=== PATIENT | female | born 1970 | race Caucasian/White ===

== ENCOUNTER → 2016-10-16 | Day surgery (SDC) | payer OTHER ==
--- NOTE | 2016-10-15 17:07 | History & Physical Pre-Op ---
General Information and HPI History of Present Illness: Emily is a 45-year-old female with a long-standing worsening complaint of painful and enlarging lesions involving both her left and right feet. The patient has undergone an extended course conservative care, including shoe gear and activity modification, rest and immobilization. None of this is yielded her any significant relief. The patient presents today for preoperative surgical consultation. Allergies/Medications Allergies: Coded Allergies: No Known Allergies (10/11/16) Home Med list Fluoxetine HCl (Prozac) 10 MG CAPSULE 3 CAP PO DAILY MENTAL HEALTH (Reported) Sertraline HCl (Zoloft) (Unknown Strength) TABLET (Unknown Dose) PO DAILY MENTAL HEALTH (Reported) Valacyclovir Hydrochloride (Valtrex) (Unknown Strength) TABLET (Unknown Dose) PO DAILY UNKNOWN (Reported) Past History Surgical History Pertinent Surgical History: non-contributory Review of Systems Review of Systems: Unremarkable except for that noted in history of present illness Exam & Diagnostic Data Physical Exam: Lungs clear bilaterally. Heart sounds rate and rhythm regular. Lower extremity physical exam demonstrates intact pedal pulses bilaterally. Pulses dorsalis pedis and posterior tibial arteries are palpable bilaterally. Patient without any sensory motor deficits. Deep tendon reflexes grossly intact. Patient noted to have soft tissue lesion involving the dorsal aspect of the third digit bilaterally. The lesions are firm and freely mobile within the soft tissues. They are nonpulsatile. Assessment/Plan Assessment/Plan: Painful and enlarging soft tissue masses bilateral feet. A lengthy discussion reviewing both surgical and conservative options was held the patient at bedside and the patient elects to go forward with surgery despite the risks. As Ranked By This Provider Problem List: 1. Neoplasm of unspecified behavior of bone, soft tissue, and skin Attending MD Review Statement Attending Statement Attending MD Statement: examined this patient
[~2016-10-16] VITALS: Ht 167.6 cm; Wt 83.0 kg
[~2016-10-16] MED LIST: PROZAC10 M1 PO; VALTREX500 M1 PO; ZOLOFT100 M1 PO
--- NOTE | 2016-10-16 09:57 | Operative Report ---
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 The patient isn't securely fastened to the operating table utilizing safety belt. After administration of IV sedation, 10 mL of 0.5% Marcaine plain was obtained about the patient's left and right ankles. 2 well-padded ankle tourniquets were placed about the patient's bilateral lower extremities. 2 g of Ancef were delivered intravenously times one dose. Left right feet were then scrubbed prepped and draped in usual aseptic manner. Right lower extremity was elevated to examine to limb, which point the ankle tourniquet inflated to 250 is mercury. Attention directed dorsal aspect of right foot where a soft tissue lesion was identified over the dorsal aspect of the third metatarsophalangeal joint. An elliptical incision compassing the lesion was marked out with a skin marker and the lesion was excised in toto and passed the operative field. Specimen sent for pathologic inspection. The wound was then inspected for any remaining evidence of lesion was identified. Stalk of the lesion was bovied and the flap was then developed with undermining of the adjacent tissues proximally with mobilization and advancement of the deep side of the flap. The deep side of the flap was held centrally with 3-0 Vicryl. Subtenons tissues reapproximated 4-0 Vicryl and the skin edges reprepped with 4-0 nylon. Incision was dressed with Xeroform 4 x 4's Kerlix and Bucky wrap. The tourniquet was then deflated and the left lower extremity was elevated to examine to limb. Attention directed to the dorsal aspect of the left third metatarsophalangeal joint where again a lesion was identified. Lesion was wedged out in toto and passed from the operative field. Specimen sent for pathologic inspection. The stalk was again bovied. The incision was then extended proximally along the longitudinal portion of the incision. The adjacent tissues were then undermined and the flap was rotated and advanced distally. The open portion the wound the apex of the flap was held at its distal corner with 4-0 Vicryl and the subtenons tissues along the remaining edges of the flap were reapproximated 4-0 Vicryl. The skin edges reapproximated 4-0 nylon. Incision was dressed with Xeroform 4 x 4's Kerlix and Bucky wrap. The patient was noted to tolerate both procedure and anesthesia well and the patient was transported from the operating room to recovery via signs stable best assess intact to both the left and right flaps.
== END ==
LOC: STS 01:07
DX: D49.2 Neoplasm of unspecified behavior of bone, soft tissue, and skin (principal); M79.671 Pain in right foot; M79.672 Pain in left foot
CPT/HCPCS: 81025; J0131; J0690; J1100; J2250; J2405